=== PATIENT | male | born 1955 | race Two or more races ===

== ENCOUNTER 2021-09-23 11:35 | Emergency (ER) | payer BC, MEDICARE ==
[~2021-09-23] VITALS: Ht 170.2 cm; Wt 71.0 kg
[2021-09-23] MEDS ORDERED: IBUPROFEN 600MG TABLET PO STA (12:14)
[2021-09-23] MEDS ORDERED: ACETAMINOPHEN 325MG TABLET PO STA (12:14)
[2021-09-23 12:39] LABS: HEMATOCRIT. 46.1 % (42.0-52.0); HEMOGLOBIN. 15.7 g/dL (14.0-18.0); MEAN CORPUSCULAR HEMOGLOBIN 30.1 pg (28.0-32.0); MEAN CORPUSCULAR VOLUME 88.7 fL (80.0-94.0); MEAN PLATELET VOLUME 8.7 fl (7.4-10.4); PLATELET 173 x1000/uL (130-400); RED BLOOD CELL COUNT 5.19 mill/uL (4.7-6.1); RED CELL DISTRIBUTION WIDTH 13.9 % (11.6-14.6)
[2021-09-23 12:46] LABS: CHLORIDE 104 mEq/L (98-107)
[2021-09-23 12:58] LABS: PLATELET ESTIMATE NORMAL
[2021-09-23 14:11] LABS: CLARITY URINE CLEAR (CLEAR); COLOR URINE YELLOW (YELLOW); KETONES URINE 1+ (NEGATIVE); LEUKOCYTE ESTERASE URINE NEGATIVE (NEGATIVE); NITRITE URINE NEGATIVE (NEGATIVE); OCCULT BLOOD URINE NEGATIVE (NEGATIVE); PH URINE 5.5 (4.5-8.0); PROTEIN URINE NEGATIVE (NEGATIVE); SPECIFIC GRAVITY URINE 1.024 (1.005-1.030)
[2021-09-23] MEDS ORDERED: IBUP-2029 MT (16:31)
[2021-09-23 17:18] VITALS: BP 103/54
== END 2021-09-23 18:00 | disposition home or self-care (01) ==
LOC: ER 11:35
DX: K80.20 Calculus of gallbladder without cholecystitis without obstruction (principal); Z90.49 Acquired absence of other specified parts of digestive tract
CPT/HCPCS: 36415; 74176; 76705; 80053; 81003; 85025; 99284

== ENCOUNTER 2022-01-27 19:41 | Emergency (ER) | payer MEDICAID, MEDICARE ==
[~2022-01-27] VITALS: Ht 170.2 cm; Wt 70.7 kg
[~2022-01-27 19:41] MED LIST: IBUP-2029 MT
[2022-01-27] MEDS ORDERED: ONDANSETRON HCL 4MG/2ML INJ IV STA (22:27)
[2022-01-27] MEDS ORDERED: KETOROLAC 30MG/ML VIAL IV STA (22:27)
[2022-01-27] MEDS ORDERED: SODIUM CHLORIDE 0.9% 1,000 ML IV ONE (22:30)
[2022-01-27 23:04] LABS: BASOPHILS % 0.2 % (0.0-2.0); EOSINOPHILS % 0.4 % (0.0-5.0); HEMATOCRIT. 44.4 % (42.0-52.0); HEMOGLOBIN. 15.3 g/dL (14.0-18.0); MEAN CORPUSCULAR HEMOGLOBIN 29.1 pg (28.0-32.0); MEAN CORPUSCULAR VOLUME 84.7 fL (80.0-94.0); MEAN PLATELET VOLUME 8.4 fl (7.4-10.4); MONOCYTES % 5.1 % (2.0-8.0); NEUTROPHILS % 80.3 % (40.0-76.0); PLATELET 161 x1000/uL (130-400); RED BLOOD CELL COUNT 5.24 mill/uL (4.7-6.1); RED CELL DISTRIBUTION WIDTH 15.2 % (11.6-14.6)
[2022-01-27 23:06] LABS: CHLORIDE 105 mEq/L (98-107)
[2022-01-28 00:33] LABS: CLARITY URINE CLEAR (CLEAR); COLOR URINE YELLOW (YELLOW); KETONES URINE TRACE (NEGATIVE); LEUKOCYTE ESTERASE URINE NEGATIVE (NEGATIVE); NITRITE URINE NEGATIVE (NEGATIVE); OCCULT BLOOD URINE NEGATIVE (NEGATIVE); PROTEIN URINE NEGATIVE (NEGATIVE); SPECIFIC GRAVITY URINE 1.007 (1.005-1.030)
[2022-01-28] MEDS ORDERED: HYDR-4001 MT (01:59)
[2022-01-28 02:00] VITALS: BP 134/68
== END 2022-01-28 02:37 | disposition home or self-care (01) ==
LOC: ER 19:41
DX: K80.20 Calculus of gallbladder without cholecystitis without obstruction (principal); R10.9 Unspecified abdominal pain; Z98.890 Other specified postprocedural states
CPT/HCPCS: 36415; 71045; 76705; 80053; 81003; 83605; 83690; 85025; 96361; 96374; 96375; 99285; J1885; J2405; J7030